=== PATIENT | male | born 1995 | race Caucasian/White ===

== ENCOUNTER 2025-02-05 16:39 | Emergency (ER) | payer SELFPAY ==
[2025-02-05 16:42] VITALS: BP 149/85; PULSE 73; RESP 16; TEMP 36.4; O2SAT 100
--- NOTE | 2025-02-05 17:07 | ED_ITS ---
HPI - Skin/Abscess/Foreign Bdy General Chief complaint: Skin/Abscess/Foreign Body <Sarah Thornton PA-C - Last Filed: 02/07/25 18:31> Stated complaint: Poss infected spider bite -right calf <Sarah Thornton PA-C - Last Filed: 02/07/25 18:31> Time Seen by Provider: 02/05/25 17:07 <Sarah Thornton PA-C - Last Filed: 02/07/25 18:31> Focused HPI: This is a 29 year old male that presents to the ER for redness and swelling to the right calf. Worsening over the last 4-5 days. Denies fevers, drainage. GENERAL: Well-appearing, well-nourished, and in no acute distress. HEAD: Normocephalic, atraumatic. CHEST: Clear to auscultation. No respiratory distress. HEART: Regular rate and rhythm. EXTREMITIES: Right calf with area of erythema, induration with central fluctuance NEURO: Alert and oriented x3. Patient screened in triage and initial orders placed. Additional care and disposition to be based upon diagnostic testing and treatment. <Sarah Thornton PA-C - Last Filed: 02/07/25 18:31> History of Present Illness HPI narrative: I agree with the above HPI <Levon Sweeney MD - Last Filed: 02/05/25 20:56> Related Data Allergies/Adverse reactions: Allergies Allergy/AdvReac Type Severity Reaction Status Date / Time No Known Allergies Allergy Verified 02/05/25 16:40 <Sarah Thornton PA-C - Last Filed: 02/07/25 18:31> Review of Systems Review of Systems: All systems reviewed & are unremarkable except as noted in HPI and below <Levon Sweeney MD - Last Filed: 02/05/25 20:56> Exam Narrative: APPEARANCE: Well appearing, no pain, no distress, well-nourished. HEAD: normocephalic, atraumatic. EYES: PERRLA/EOMI, conjunctivae clear. NOSE: Normal no drainage EARS:TMS clear with good light reflex. THROAT: Pharynx clear, no exudate. NECK: Supple. No adenopathy, no masses. RESPIRATORY: Airway patent, respirations nonlabored. Clear to auscultation bilaterally, no rales, rhonchi, wheezing. CARDIOVASCULAR: Regular rate and rhythm without murmurs rubs or gallops. ABDOMINAL: Soft, nontender, nondistended, normal bowel sounds MUSCULOSKELETAL: Moves all extremities. Strength/ROM intact, No edema, No calf tenderness. NEURO: Alert. Cranial nerves II through XII intact. Good gait. Good coordination SKIN: Abscess to right posterior calf <Levon Sweeney MD - Last Filed: 02/05/25 20:56> Course Vital Signs Vital signs: Vital Signs Temperature 97.6 F 02/05/25 16:42 Pulse Rate 73 02/05/25 16:42 Respiratory Rate 16 02/05/25 16:42 Blood Pressure 149/85 H 02/05/25 16:42 Pulse Oximetry 100 02/05/25 16:42 Temperature 97.6 F 02/05/25 16:42 Pulse Rate 73 02/05/25 16:42 Respiratory Rate 16 02/05/25 16:42 Blood Pressure 149/85 H 02/05/25 16:42 Pulse Oximetry 100 02/05/25 16:42 <Sarah Thornton PA-C - Last Filed: 02/07/25 18:31> Vital Signs Temperature 97.6 F 02/05/25 16:42 Pulse Rate 73 02/05/25 16:42 Respiratory Rate 16 02/05/25 16:42 Blood Pressure 149/85 H 02/05/25 16:42 Pulse Oximetry 100 02/05/25 16:42 Temperature 97.6 F 02/05/25 16:42 Pulse Rate 73 02/05/25 16:42 Respiratory Rate 16 02/05/25 16:42 Blood Pressure 149/85 H 02/05/25 16:42 Pulse Oximetry 100 02/05/25 16:42 <Levon Sweeney MD - Last Filed: 02/05/25 20:56> Procedures Abscess I/D lower extremity: Date of Incision: 02/05/25 <Levon Sweeney MD - Last Filed: 02/05/25 20:56> Time of Incision: 19:58 <Levon Sweeney MD - Last Filed: 02/05/25 20:56> Side (if applicable): right <Levon Sweeney MD - Last Filed: 02/05/25 20:56> Local Anesthetic: lidocaine 1% and with epi <Levon Sweeney MD - Last Filed: 02/05/25 20:56> Amount of anesthesia used (mL): 3 <Levon Sweeney MD - Last Filed: 02/05/25 20:56> Technique: incised with #11 blade <Levon Sweeney MD - Last Filed: 02/05/25 20:56> Amount of fluid expressed (mL): 5 <Levon Sweeney MD - Last Filed: 02/05/25 20:56> Irrigation: Yes <Levon Sweeney MD - Last Filed: 02/05/25 20:56> Packing used?: iodoform <Levon Sweeney MD - Last Filed: 02/05/25 20:56> I&D Results: Pus and Blood <Levon Sweeney MD - Last Filed: 02/05/25 20:56> Critical Care Time Critical Care Time Critical Care Time: No <Sarah Thornton PA-C - Last Filed: 02/07/25 18:31> Discharge Plan Discharge Clinical Impression: Abscess of skin or subcutaneous tissue Qualifiers: Site of cutaneous abscess: extremity Site of cutaneous abscess of extremity: lower extremity Laterality: right Qualified Code(s): L02.415 - Cutaneous abscess of right lower limb <Sarah Thornton PA-C - Last Filed: 02/07/25 18:31> Patient Disposition: Home <RELL Phoenix Last Filed: 02/07/25 18:31> Condition: Stable <RELL Phoenix Last Filed: 02/07/25 18:31> Instructions: Antibiotic Form, Abscess (ED) <RELL Phoenix Last Filed: 02/07/25 18:31> Additional Instructions: Antibiotic as directed until completed. Have close follow-up with your primary care physician for wound check in the next 1-2 days. Wound care as directed. If you have any worsening symptoms then please call or return to the emergency department. <RELL Phoenix Last Filed: 02/07/25 18:31> Patient Language: Setswana <Sarah Thornton PA-C - Last Filed: 02/07/25 18:31> Prescriptions: New sulfamethoxazole-trimethoprim [Bactrim DS] 800-160 mg tablet 1 tablet PO Q12H 7 Days Qty: 14 0RF <Sarah Thornton PA-C - Last Filed: 02/07/25 18:31> Follow-up/Referrals: PHYSICIAN,RESIDENTIAL LEASING AGENT [Primary Care Provider] - <Sarah Thornton PA-C - Last Filed: 02/07/25 18:31>
--- NOTE | 2025-02-05 19:37 | PC.NURSE ---
Lidocaine pulled and at bedside for edp senia to use. EDP aware.
--- OUTSIDE RECORDS SUMMARY | 2025-02-05 20:04 | XMS_ITS ---
Author Organization [facility] Address [address] [place] [address] Care Team Providers Care Psychiatric Np Name Role Phone Darby Blancas Primary Care Provider Ana Sesay Unavailable [phone] REASON FOR VISIT Patient presents today for annual physical exam. Encounters Encounter Location Date Provider Diagnosis [address] [address] 09/24/2023 Ana Sesay Plan Of Treatment No Information Progress Notes * Jerrod VELIZDOB: 6 (29 yo M)Acc No.[id number]:09/24/2023 UNLOCKED PROGRESS NOTE Progress Notes Patient: Jerrod JIMENEZ Provider: Fauzia Sesay APN :1995 A ge:27 Y S ex:Male Date:09/24/2023 Address:[address] [place], [place] [id number] Pcp:Darby Blancas Subjective: * Chief Complaints: * 1 . Patient presents today for annual physical exam.. * Medical History: Objective: * Vitals: Assessment: Plan: * Treatment: * Billing Information: * Visit Code: * Procedure Codes: * Electronic signature of Jamilah Sesay APN on 02/05/2025 at 08:04 PM CDT Sign off status: Pending Visit Status: N /S (No-Show) * Provider: Fauzia Sesay APN Date: 0 09/24/2023 Generated for Printi ng/Faxing/eTransmitting on: 0 02/05/2025 08:04 PM CDT
--- OUTSIDE RECORDS SUMMARY | 2025-02-05 20:05 | XMS_ITS | Clinical Summary ---
Author Organization [facility] Address [address] [place] [address] Care Team Providers Care Striker Out Name Role Phone Unavailable Primary Care Provider Unavailabl e Source Comments [facility],non-owned Affiliates and Associated Physician Practices is amultiple site organization consisting of ambulatory clinics and hospital sitesin [place], [place], [place] and [place]. This disclosure is being madepursuant to the Care Everywhere program and may not contain all information available regarding this patient. Last updated 18.[facility] Allergies No known active allergies Medications * Be aware that medications may not be up to date on this document. Alwaysverify current medications with the patient. terbinafine (LamISIL) 250 MG tabletIndicatio ns:Tinea pedis of both feet,Onychomyco sis,Foot pain, bilateral Take 1 (one) tablet by mouth once daily 14 tablet 06/17/2022 Active ketoconazole (Nizoral) 2 % creamIndication s:Tinea pedis of both feet,Onychomyco sis,Foot pain, bilateral Apply to affected area once daily 15 g 06/17/2022 Active Active Problems Problem Noted Date Diagnosed Date Intentional drug overdose 05/26/2020 Social History Tobacco Use Types Packs/Day Years Used Date Smoking Tobacco: Former Cigarettes Q uit: 06/03/2022 Smokeless Tobacco: Never Tobacco Cessation:Counseling Given: Not Answered Alcohol Use Standard Drinks/Week Comments Not Currently 0 (1 standard drink = 0.6 oz pur e alcohol) once Q6 months PHQ-2 Answer Date Recorded PHQ2 TOTAL SCORE 0 06/17/2022 Sex and Gender Information Value Date Recorded Sex Assigned at Not on file Legal Sex Male 10:39 PM [employer] Gender Identity Not on file Sexual Orientation Not on file Last Filed Vital Signs Vital Sign Reading Time Taken Comments Blood Pressure 121/81 03/18/2024 1:49 AM CDT Pulse 87 03/18/2024 1:49 AM CDT Temperature 36.8 C (98.2 F) 03/17/2024 10:17 PM CDT Respiratory Rate 18 03/17/2024 10:17 PM CDT Oxygen Saturation 99% 03/18/2024 1:49 AM CDT Inhaled Oxygen Concentration - - Weight 116.1 kg (256 lb) 03/17/2024 10:20 PM CDT Height 182.9 cm (6') 03/17/2024 10:20 PM CDT Body Mass Index 34.72 03/17/2024 10:20 PM CDT Plan of Treatment Health Maintenance Due Date Last Done Comments HIV SCREENING 2010 HEPATITIS C SCREENING 11/12/2013 DTAP/TDAP/TD VACCINES (1 - Tdap) 2014 HEPATITIS B VACCINE (1 of 3 - 19+ 3-dose series) 2014 COVID-19 VACCINE (1 - 2023-2 5 season) 2024 DEPRESSION SCREENING 09/20/2024 05/11/2022 INFLUENZA VACCINE (Season Ended) 2025 ZOSTER VACCINE (1 of 2) 2045 HIB VACCINE Aged Out No longer eligi ble based on patient's age to complete this topic HPV VACCINE Aged Out No longer eligi ble based on patient's age to complete this topic MENINGOCOCCAL (Group B) VACC INE SHARED DECISION-MAKING Aged Out No longer eligibl e based on patient's age to complete this topic MENINGOCOCCAL GROUPS A/C/Y/W VACCINE Aged Out No longer eligible b ased on patient's age to complete this topic PNEUMOCOCCAL VACCINE Aged Out No long er eligible based on patient's age to complete this topic Insurance [address] [place], [place] [id number] [place] [address] HEALTH PLAN [facility] TH[employer] LIABILITY [employer] Liability SELF PAY NO INSURANCE Member Subscriber Plan / Payer (Ef fective for All Dates) Name:Jerrod Daugherty Member ID:Not on file Relation to Subscriber:Self Name:Jerrod Daugherty Subscriber ID:Not on file Payer ID:Not on file Group ID:Not on file Type:Self Pay Address: [place], [place] Advance Directives * Full Code (Latest Code Status on File) Date Activated Date Inactivated Comments 05/26/2020 4:43 AM 05/26/2020 3:54 PM
--- OUTSIDE RECORDS SUMMARY | 2025-02-05 20:05 | XMS_ITS | Patient Health Record ---
Author Organization [facility] [employer] Address [address] [address] [address] [place] [address] Care Team Providers Care Fagot Heater Helper Name Role Phone Darby Blancas Primary Care Provider Allergies No Known Allergies Reason For Referral No Information Medications Medication SIG (Take, Route, Frequency, Duration) Notes Start Date End Date Status PROzac 20 MG 1 capsule Orally Onc e a day for 14 days 10/26/2023 Active Clotrimazole 1 % 1 application - dispense 30gm tube Externally every 12 hours for 14 days 05/11/2023 Not-Taking valACYclovir HCl 1 GM 1 tablet Orally ev buffy 12 hours for 10 days 05/11/2023 Active Vitamin D-[address] 25 MCG (1000 UT) 1 tablet Orally Once a day for 30 days 06/09/2023 Active Social History Tobacco Use: Social History Observation Description Date Details (start date - stop date) Unknown Tobacco Use/Smoking Question Answer Notes Are you a Uses tobacco in other forms Tobacco use other than smoking: Question Answer Notes Are you an other tobacco user? Yes DAST-10 (2020 Edition) Question Answer Notes 1. Have you used drugs other than those required for medical reasons? No 2. Do you abuse more than one drug at a time? No 3. Are you always able to st op using drugs when you want to? Yes 4. Have you had blackouts or flashbacks as a result of drug use? No 5. Do you ever feel bad or guilty about your naa g use? No 6. Does your spouse (or pare nts) ever complain about your involvement with drugs? No 7. Have you neglected your f amily because of your use of drugs? No 8. Have you engaged in illeg al activities in order to obtain drugs? No 9. Have you ever experienced withdrawal symptoms (felt sick) when you stopped taking drugs? No 10. Have you had medical pro blems as a result of your drug use (e.g., memory loss, hepatitis, convulsions, bleeding etc.)? No Results: 0 Interpretation of Score: No problems reported Section Notes: pt vapes Problems Problem Type SNOMED Code ICD Code Onset Dates Problem Status W/U Status Risk Notes Problem Depression (152298604) Depression (F32.9) Active confirmed Problem Anxiety (93689152) Anxiety (F41.9) Active confirmed Problem Obese class II ([id number] 5) BMI 36.0-36.9,adult (Z68.36) Active confirmed Problem BMI 37.0-37.9, adult (Z68.37) Active confirmed Plan Of Treatment No Information Insurance Providers Payer Name Payer Address Payer Phone Subscriber Number Group Number Insured Name Patient Relationship to Insured Coverage Start Date Coverage End Date [facility] [employer] [address] [place] [address] [id number] Jerrod Daugherty Self - patient is the insured 1 [facility] [address] [place] [address] [id number] Jerrod Daugherty Self - patient is the insured 1 [facility] Nonbillable [address] [place] [address] [id number] Jerrod Daugherty Self - patient is the insured 1
[2025-02-05] MEDS: SULFAMETHOXAZOLE/TRIMETHOPRIM 800/160 MG DS TABLET 1 TAB PO (20:08)
== END 2025-02-05 20:12 | disposition home or self-care (01) ==
LOC: ANHED 20:02
PROVIDERS: Emergency Provider Emergency Medicine
DX: L02.415 Cutaneous abscess of right lower limb (principal)
CPT/HCPCS: 10061; 87070; 87075; 87181; 87205; 99283; A9270